=== PATIENT | female | born 1975 | race Caucasian/White ===

== ENCOUNTER 2017-05-02 05:22 | Observation (INO) | payer BC ==
[2017-05-02] VITALS (11 sets, daily range): BP systolic 105–157; BP diastolic 69–84; PULSE 68–94; TEMP 97.6–98.8
[~2017-05-02] VITALS: Ht 172.7 cm; Wt 138.1 kg
[2017-05-02] MEDS ORDERED: TRANDATE 100MG100 MG PO (06:42)
[2017-05-02] MEDS ORDERED: TRANDATE 200MG200 MG PO (06:42)
[2017-05-02] MEDS ORDERED: FLAXSEED OIL1000 MG PO (06:43)
[2017-05-02] MEDS ORDERED: PRIL40 PO (06:43)
[2017-05-02] MEDS ORDERED: ALLEGRA 180MG180 MG PO (06:44)
[2017-05-02] MEDS ORDERED: ASPIRIN E.C. 8181 MG PO (06:44)
[2017-05-02] MEDS ORDERED: BIOTIN800 MCG PO (06:45)
[2017-05-02] MEDS ORDERED: VITAMIND3 5000 PO (06:46)
[2017-05-02] MEDS ORDERED: GLUCOPHAGE1000 MG PO (06:46)
[2017-05-02] MEDS ORDERED: HCTZ 25MG TAB25 MG PO (06:47)
[2017-05-02] MEDS ORDERED: KLOR-CON 1010 MEQ PO (06:48)
[2017-05-02] MEDS ORDERED: SYNTHROID0.075 MG/T PO (06:49)
[2017-05-02] MEDS ORDERED: PROAIR HFA0.09 MG/AC IH (06:49)
[2017-05-02] MEDS ORDERED: EPIPEN 2-PAK1 MG/ML IM (06:50)
[2017-05-02] MEDS ORDERED: [UNRECOGNIZED DRUG - OTHER] (06:51)
[2017-05-02] MEDS ORDERED: MOTRIN 200200 MG/TAB PO (06:51)
[2017-05-02] MEDS ORDERED: FLORICAL PO (06:52)
[2017-05-02] MEDS ORDERED: VOLTAREN GEL 1%1 TU TP (06:53)
[2017-05-02] MEDS ORDERED: PERCOCET 325 MG1 TA2 PO (07:23)
[2017-05-02] MEDS ORDERED: MOTRIN 800800 MG/TAB PO (07:23)
[2017-05-02] MEDS ORDERED: LOVENOX 6060 MG/0.6 SQ (07:25)
[2017-05-03 02:02] VITALS: BP 145/71; PULSE 73; TEMP 98.3
[2017-05-03 05:30] VITALS: BP 116/872; PULSE 60; TEMP 97.4
== END 2017-05-03 09:17 | disposition home or self-care (01) ==
LOC: SDCO 05:22 → SURG 10:24 → SDCO 18:01 → SURG 18:01
DX: D25.0 Submucous leiomyoma of uterus (principal); N92.0 Excessive and frequent menstruation with regular cycle; N94.6 Dysmenorrhea, unspecified; J45.909 Unspecified asthma, uncomplicated; K21.9 Gastro-esophageal reflux disease without esophagitis; F32.9 Major depressive disorder, single episode, unspecified; E03.9 Hypothyroidism, unspecified; I10 Essential (primary) hypertension; E28.2 Polycystic ovarian syndrome; I26.99 Other pulmonary embolism without acute cor pulmonale; G43.909 Migraine, unspecified, not intractable, without status migrainosus; E66.9 Obesity, unspecified; Z68.42 Body mass index [BMI] 45.0-49.9, adult; Z79.84 Long term (current) use of oral hypoglycemic drugs; Z82.49 Family history of ischemic heart disease and other diseases of the circulatory system; Z84.2 Family history of other diseases of the genitourinary system
CPT/HCPCS: A4315; A9284; G0378; J0690; J1100; J1650; J1885; J2270; J2405; J2550; J2704; J2710; J3010; J7120

== ENCOUNTER → 2018-06-08 | Outpatient (CLI) | payer BC ==
[~2018-06-08] MED LIST: ALLEGRA 180MG180 MG PO; ASPIRIN E.C. 8181 MG PO; BIOTIN800 MCG PO; EPIPEN 2-PAK1 MG/ML IM; FLAXSEED OIL1000 MG PO; FLORICAL PO; GLUCOPHAGE1000 MG PO; HCTZ 25MG TAB25 MG PO; KLOR-CON 1010 MEQ PO; LOVENOX 6060 MG/0.6 SQ; MOTRIN 200200 MG/TAB PO; MOTRIN 800800 MG/TAB PO; PERCOCET 325 MG1 TA2 PO; PRIL40 PO; PROAIR HFA0.09 MG/AC IH; SYNTHROID0.075 MG/T PO; TRANDATE 100MG100 MG PO; TRANDATE 200MG200 MG PO; VITAMIND3 5000 PO; VOLTAREN GEL 1%1 TU TP; [UNRECOGNIZED DRUG - OTHER]
== END ==
LOC: MC.RAD 13:37
DX: Z12.31 Encounter for screening mammogram for malignant neoplasm of breast (principal); N63.14 Unspecified lump in the right breast, lower inner quadrant

== ENCOUNTER → 2018-06-10 | Outpatient (CLI) | payer BC | LOC: MC.RAD 12:56 | DX: N60.01 Solitary cyst of right breast (principal) ==

== ENCOUNTER → 2020-11-30 | Outpatient (CLI) | payer BC ==
[~2020-11-30] MED LIST changes: +KLOR-CON M2020 MEQ PO; +ZOFRAN ODT4 MG PO
== END ==
LOC: COL.RAD 11-21 09:00
DX: M25.552 Pain in left hip (principal)
CPT/HCPCS: J3301; Q9967

== ENCOUNTER → 2023-06-25 | Outpatient (CLI) | payer BC | LOC: COL.RAD 07:01 | DX: K76.0 Fatty (change of) liver, not elsewhere classified (principal); R16.0 Hepatomegaly, not elsewhere classified ==